=== PATIENT | female | born 1990 | race Two or more races ===

== ENCOUNTER 2025-10-23 21:04 | Emergency (ER) | payer BC, MEDICAID, OTHER ==
[~2025-10-23] VITALS: Ht 175.3 cm; Wt 75.0 kg
[2025-10-23 21:05] VITALS: O2SAT 100
[2025-10-23 21:38] VITALS: TEMP 36.7
[2025-10-23] MEDS: MORPHINE SULFATE 4 MG/ML INJ (FOR IV/IM USE) IV ONE (21:51)
[2025-10-23] MEDS: ONDANSETRON HCL 4MG/2ML INJ IV ONE (21:51)
[2025-10-23] MEDS: ACETAMINOPHEN 325MG TABLET PO ONE (21:51)
[2025-10-23] MEDS: SODIUM CHLORIDE 0.9% 500 ML IV ONE (21:58)
[2025-10-23 22:01] LABS: BASOPHILS % 0.4 % (0.0-2.0); EOSINOPHILS % 2.2 % (0.0-5.0); HEMATOCRIT. 36.9 % (36.0-48.0); HEMOGLOBIN. 12.4 g/dL (12.0-16.0); LYMPHOCYTES % 38.0 % (20.0-50.0); MEAN PLATELET VOLUME 7.1 fl (7.4-10.4); MONOCYTES % 7.8 % (2.0-8.0); NEUTROPHILS % 51.6 % (40.0-76.0); PLATELET 327 x1000/uL (130-400); RED BLOOD CELL COUNT 4.38 mill/uL (4.2-5.4); RED CELL DISTRIBUTION WIDTH 14.7 % (11.6-14.6)
[2025-10-23 22:16] LABS: CREATININE 1.0 mg/dL (0.6-1.0)
[2025-10-23 22:17] LABS: ETHANOL BLOOD < 10 mg/dL (<10); PROTEIN TOTAL 7.2 g/dL (6.0-8.3); TROPONIN I HIGH SENSITIVITY < 4 ng/L (3.0-34); UREA NITROGEN BLOOD 5 mg/dL (9-23)
[2025-10-23 22:18] LABS: ASPARTATE AMINOTRANSFERASE 27 IU/L (<34)
[2025-10-23 22:19] LABS: BILIRUBIN DIRECT < 0.1 mg/dL (<=3.0); BILIRUBIN TOTAL 0.3 mg/dL (0.1-1.0); HCG SCREEN NEGATIVE
[2025-10-23 23:22] LABS: INR 1.0
[2025-10-24] MEDS ORDERED: POTA-204 MT (00:05)
[2025-10-24] MEDS: ACETAMINOPHEN 325MG TABLET PO ONE (00:23)
[2025-10-24] MEDS: POTASSIUM CHLORIDE 20MEQ/PACKET PO NR (00:23)
[2025-10-24 00:25] VITALS: BP 162/92; PULSE 89; RESP 16; O2SAT 95
== END 2025-10-24 00:39 | disposition home or self-care (01) ==
LOC: ER 21:04 → CMPBEDREQ 10-24 10:35
DX: R55 Syncope and collapse (principal); M54.50 Low back pain, unspecified; E11.9 Type 2 diabetes mellitus without complications; E87.6 Hypokalemia; I10 Essential (primary) hypertension; Z79.899 Other long term (current) drug therapy; Z88.6 Allergy status to analgesic agent
CPT/HCPCS: 80076; 80048; 80320; 82962; 84703; 85025; 85610; 85730; 84484; 36415; 71045; 70450; 72131; 96361; 96374; 96375; 99285; J2405; J2270; J7040; G0480